=== PATIENT | female | born 2000 | race Caucasian/White ===

== ENCOUNTER 2020-11-26 01:35 | Emergency (ER) | payer OTHER ==
[~2020-11-26] VITALS: Ht 165.1 cm; Wt 54.5 kg
[2020-11-26 01:44] VITALS: TEMP 98
[2020-11-26 01:51] LABS: COLLECTION METHOD CLEAN CATCH
[2020-11-26 02:00] LABS: MUCOUS Present /lpf; PH 6 (5-8); URINE APPEARANCE Hazy; URINE BACTERIA Rare /hpf; URINE BILIRUBIN Negative (NEGATIVE); URINE BLOOD 3+ (NEGATIVE); URINE COLOR Yellow; URINE GLUCOSE Negative (NEGATIVE); URINE KETONE Negative (NEGATIVE); URINE LEUKOCYTE ESTERASE Negative (NEGATIVE); URINE NITRATE Negative (NEGATIVE); URINE PROTEIN(semi-quant) 1+ (NEGATIVE); URINE RBC >50 /hpf; URINE UROBILINOGEN Negative (NEGATIVE)
[2020-11-26] MEDS ORDERED: CEFTIN 250250 MG/TAB PO (02:04)
[2020-11-26 02:20] VITALS: BP 122/78; PULSE 64
== END 2020-11-26 02:20 | disposition home or self-care (01) ==
LOC: COL.ER 01:35
PROVIDERS: Emergency Medicine
DX: N39.0 Urinary tract infection, site not specified (principal); Z32.02 Encounter for pregnancy test, result negative

== ENCOUNTER 2020-11-29 20:18 | Emergency (ER) | payer OTHER ==
[~2020-11-29] VITALS: Ht 165.1 cm; Wt 54.5 kg
[~2020-11-29 20:18] MED LIST: CEFTIN 250250 MG/TAB PO
[2020-11-29 20:34] VITALS: BP 107/71; TEMP 99
[2020-11-29] MEDS ORDERED: MACROBID 1100 MG/CAP PO (20:52)
[2020-11-29 20:57] VITALS: PULSE 77
== END 2020-11-29 20:58 | disposition home or self-care (01) ==
LOC: COL.ER 20:18
DX: L50.9 Urticaria, unspecified (principal); T45.0X5A Adverse effect of antiallergic and antiemetic drugs, initial encounter; T36.1X5A Adverse effect of cephalosporins and other beta-lactam antibiotics, initial encounter; T37.8X5A Adverse effect of other specified systemic anti-infectives and antiparasitics, initial encounter

== ENCOUNTER 2022-03-16 06:02 | Emergency (ER) | payer OTHER ==
[~2022-03-16] VITALS: Ht 165.1 cm; Wt 56.8 kg
[~2022-03-16 06:02] MED LIST changes: +MACROBID 1100 MG/CAP PO
[2022-03-16 06:07] VITALS: TEMP 98.3
[2022-03-16 06:31] LABS: COLLECTION METHOD CLEAN CATCH
[2022-03-16 06:47] LABS: MUCOUS Present (NOT PRESENT); PH 6 (5-8); SQUAMOUS EPITHELIAL 20-50 /hpf (0-10); URINE APPEARANCE Cloudy (CLEAR/HAZY); URINE BACTERIA Rare /hpf (NONE SEEN); URINE BILIRUBIN Negative (NEGATIVE); URINE BLOOD Negative (NEGATIVE); URINE COLOR Yellow (YELLOW); URINE GLUCOSE Negative (NEGATIVE); URINE KETONE Negative (NEGATIVE); URINE LEUKOCYTE ESTERASE Trace (NEGATIVE); URINE NITRATE Negative (NEGATIVE); URINE PROTEIN(semi-quant) Negative (NEGATIVE); URINE RBC 0-2 /hpf (0-2); URINE UROBILINOGEN Negative (NEGATIVE)
[2022-03-16 07:00] VITALS: BP 100/58; PULSE 71
== END 2022-03-16 07:00 | disposition home or self-care (01) ==
LOC: COL.ER 06:02
PROVIDERS: Emergency Medicine
DX: O26.891 Other specified pregnancy related conditions, first trimester (principal); R10.30 Lower abdominal pain, unspecified; Z3A.01 Less than 8 weeks gestation of pregnancy; Z28.310 Unvaccinated for COVID-19